=== PATIENT | female | born 1950 | race Two or more races ===

== ENCOUNTER 2019-11-02 08:29 | Emergency (ER) | payer OTHER ==
[~2019-11-02] VITALS: Ht 160 cm; Wt 83.5 kg
[~2019-11-02 08:29] MED LIST: HYOSCYAMINE0.125 M1 SL; INTESTINEX1 CA1 PO; TRAM1TAB98 PO
[2019-11-02] MEDS ORDERED: CLONAZEPAM1 M1 (08:59)
== END 2019-11-02 09:52 | disposition home or self-care (01) ==
LOC: ER 08:29
DX: S90.01XA Contusion of right ankle, initial encounter (principal); W18.39XA Other fall on same level, initial encounter; Y93.9 Activity, unspecified; Y92.098 Other place in other non-institutional residence as the place of occurrence of the external cause; Y99.8 Other external cause status